=== PATIENT | female | born 1980 | race Caucasian/White ===

== ENCOUNTER 2018-11-03 10:50 | Inpatient (IN) ==
[2018-11-03 12:47] LABS: BASO# 0.02 X1000 (0.0-0.2); BASO% 0.2 % (0.0-0.8); EOS# 0.11 X1000 (0.0-0.7); HEMATOCRIT 37.9 % (37.0-47.0); HEMOGLOBIN 12.4 g/dL (12.0-16.0); LYMPH# 3.31 X1000 (1.2-3.4); LYMPH% 30.6 % (20.5-51.1); MCH 25.7 PG (27-31); MCHC 32.7 g/dL (33-37); MCV 78.5 FL (81-99); MONO# 0.68 X1000 (0.11-0.59); MONO% 6.3 % (1.7-9.3); MPV 10.8 FL (7.4-10.4); NEUT# 6.71 X1000 (1.4-6.5); NEUT% 61.9 % (42.2-75.2); PLT 157 X1000 (130-400); RBC 4.83 XMIL (4.2-5.4); RDW 15.7 % (11.5-14.5); WBC 10.83 X1000 (4.8-10.8)
[2018-11-03 13:06] LABS: AGAP 8; ALBUMIN 3.3 g/dL (3.5-5.0); ALKALINE PHOSPHATASE 85 U/L (32-104); BUN 8 mg/dL (8-22); CALCIUM 8.3 mg/dL (8.8-10.2); CHLORIDE 102 mmol/L (98-107); CK PROFILE 32 U/L (24-173); COSMO 283; CREATININE 0.6 mg/dL (0.5-0.9); ESTIMATED GFR > 60; GLUCOSE 324 mg/dL (70-104); GOT 21 U/L (10-30); GPT 24 U/L (10-36); POTASSIUM 4.2 mmol/L (3.5-5.1); SODIUM 136 mmol/L (136-145); TCO2 26 mmol/L (25-35); TOTAL BILIRUBIN 0.62 mg/dL (0.20-1.00); TOTAL PROTEIN 6.5 g/dL (6.3-8.3)
--- NOTE | 2018-11-03 13:08 | Diag Imaging Result Doc PS360 ---
CHEST-PORTABLE - 11/03/2018 INDICATION: cp COMPARISON: 03/18/2018 FINDINGS: There is a new left-sided pacemaker in good position. Stable CABG changes. Lung volumes are severely low with some central crowding. No infiltrates or definite edema. Heart size is top normal. IMPRESSION: Severely low lung volumes. No acute disease or complication. Electronically signed by Brien Sykes 11/03/2018 1:06 PM
[2018-11-03] MEDS: BRILINTA PO SCH ×2 (14:45→21:06)
--- NOTE | 2018-11-03 14:49 | EKG Report ---
Test Performed on : 11/03/2018 11:19:17 AM Test Reason : ED. No order in [place] Blood Pressure : / mmHG Vent. Rate : 089 BPM Atrial Rate : 089 BPM P-R Int : 164 ms QRS Dur : 102 ms QT Int : 410 ms P-R-T Axes : 033 -44 077 degrees QTc Int : 498 ms Normal sinus rhythm. Possible Left atrial enlargement Left axis deviation Septal infarct , age undetermined Abnormal ECG When compared with ECG of 18-MAR-2018 13:13, No significant change was found Unconfirmed Result
--- NOTE | 2018-11-03 15:45 | HISTORY AND PHYSICAL ---
CHIEF COMPLAINT: Chest pain, shortness of breath, and palpitations of about 7 days duration. HISTORY OF PRESENT ILLNESS: Ms Pinot is a 37 years old lady with past medical history of morbid obesity, coronary artery disease, status post coronary artery bypass graft and multiple stent, multiple DVT/PE, AICD or pacemaker placement, who comes in with chief complaints of chest pain, shortness of breath and palpitation of about 7 days duration. At baseline, patient is alert and oriented. She is able to carry out her routine activities. However, she has been lately using a cane, and her family members help. She suddenly started experiencing chest pain when she was sleeping about 7 days ago. The nature of the chest pain was described to be as substernal, sharp, located over the left chest underneath the breast, sometimes radiating to the right side associated with palpitation, shortness of breath, mild diaphoresis and headache. She did not seek any medical attention. She kept on taking her routine medication. Noticeably, she has ran out of her Eliquis for about 2 weeks since it requires prior authorization and she has not received these medication. Her symptoms of chest pain and shortness of breath would get worse on physical exertion. It intermittently got better without any specific relieving factors. However, today it started getting worse again so she decided to come to the emergency room. In the emergency room, she was noted to have blood pressure of 70/40. However, it appears to be in appropriate reading as reported to me by the patient. She is denying currently any chest pain, shortness of breath, or dizziness. Blood pressure cuff is not hooked up to her arm. She denies any cough. She also denies any recorded fever. She states that her last stent was in June of 2018 and her last blood clot in the lower extremity was in August of 2018. REVIEW OF SYSTEMS: Positive for headache. Positive for dizziness. Negative for blurry vision. Positive for chest pain, which is better now. Positive shortness of breath and palpitation. Negative for nausea, vomiting, or abdominal pain. Positive for leg cramps. Positive for mild bilateral edema. Negative for urinary frequency or urgency. Negative for constipation. PAST MEDICAL HISTORY: Coronary artery disease status post CABG in January of 2017, multiple percutaneous intervention, and about 9 stents last one being in June of 2018. AICD placement in April of 2018. Her clinical educator is Ryder Arias. Multiple deep venous thrombosis and pulmonary embolism on Eliquis. Last blood clot was in August of 2018. She has been off blood thinners for about 2 weeks now. Past history of Factor V Leiden. History of secondary smoke and suspected chronic obstructive pulmonary disease from that. Morbid obesity. Fibromyalgia. Degenerative joint disease. Obstructive sleep apnea. Narcolepsy. Seizure. PAST SURGICAL HISTORY: 1. Coronary artery bypass graft. 2. AICD placement. 3. Tonsillectomy. 4. section. SOCIAL HISTORY: She denies smoking. Occasional alcohol drink. She denies recreational drugs. FAMILY HISTORY: Family history of multiple DVT. Family history of coronary artery disease. Family history of Factor V Leiden. PHYSICAL EXAMINATION: VITAL SIGNS: Currently, vitals suggest temperature of 98 degrees, pulse 85, respiratory rate 16, blood pressure of 115/63 and saturating 99% on room air. GENERAL: Morbidly obese not in any acute distress. Oral cavity is moist. LUNGS: Air entry bilaterally equal. No wheeze or rhonchi. Mild crackles bilateral infrascapular region however, examination is limited because of her large body habitus. HEART: S1, S2 normal. No murmur, rub, or gallop. She has a chest wall scar of previous bypass graft. She has mild tenderness on palpation of her precordium. ABDOMEN: Obese, soft, and nontender. EXTREMITIES: Mild bilateral lower extremity edema. NEUROLOGIC: She is alert and oriented x3 lying in the bed comfortably. LABORATORY: Suggestive of leukocytosis. Normal hemoglobin, hematocrit, and platelet count. Normal electrolytes. Hyperglycemia. Serum test is negative. Her troponin initial was also negative. No new microbiological data. IMAGING: Chest x-ray suggestive of severely low lung volumes without any acute disease or complication. EKG was suggestive of normal sinus rhythm, left atrial enlargement. Q-waves with septal infarct in V1 to V3. ASSESSMENT AND PLAN: 1. Precordial Chest pain with exertional exacerbation, with prior history of significant coronary artery disease status post CABG in January of 2017, and multiple percutaneous intervention with last stent being in June of 2018. Differential includes residual CAD, recurrent PE, anxiety, fibromyalgia. 2. History of congestive heart failure, status post AICD in April of 2018 with mild pedal edema. 3. History of multiple DVT/PE related to morbid obesity as well as Factor V Leiden deficiency and noncompliance with Eliquis due to insurance issues. 4. History of seizure. 5. History of den-[id number] diabetes mellitus with current hyperglycemia. 6. Essential hypertension and hyperlipidemia, fibromyalgia, LORI, NARCOLEPSY. PLAN: The patient's chest pain did have features of worsening on physical exertion. She has significant coronary artery disease history. Considering that, I will resume her home medication of Brilinta and Eliquis and atorvastatin. I will resume her other home medications as they are reconciled. I will trend troponin's. We will follow up with echocardiogram. I will consult Cardiology to see if she would need a stress test vs coronary angiography based on her course. I will start her on therapeutic dose of eliquis considering that she has missed almost 2 weeks of treatment and she has had multiple DVT/PE in the past as per history (last being in 08/2018). I will also continue her on sliding scale insulin. Plan of care discussed with her. All of her questions have been answered. cc: Bairon Palomares MD MTDD
--- NOTE | 2018-11-03 16:34 | ECHO REPORT ---
ORDER DATE: 11/03/2018 INTERPRETING PHYSICIAN: Dr. Steven Bazzi ECHOCARDIOGRAPHIC MEASUREMENTS: 1. Interventricular septum 0.9. 2. Left ventricular posterior wall 0.9. 3. Diastolic diameter 6.1. 4. Left atrium 4.4. 5. Aorta 2.9. SUMMARY OF THE 2-DIMENSIONAL IMAGIN. Mitral valve was normal. 2. Pulmonic valve was normal. 3. Aortic valve leaflets trileaflet, not well visualized. Pacemaker leads were noted in the right chamber. 4. Mitral valve was normal. 5. Tricuspid valve was normal. 6. Technically suboptimal study. Very poor acoustic window. 7. Optison was used to assess left ventricular systolic function. Left ventricle was mildly dilated with reduced systolic function. Estimated ejection fraction of 20% to 25%. There is global hypokinesis. 8. There is mild mitral regurgitation. 9. Mild tricuspid regurgitation. Peak velocity across the tricuspid valve was 3 m/sec. Pulmonary artery systolic pressure of 50 mmHg. 10. Peak velocity across the aortic valve less than 2 m/sec. There is no aortic stenosis or regurgitation. 11. There is no pericardial effusion. cc: MD Bairon Meléndez MD
[2018-11-03] MEDS: HUMALOG SUBQ SCH ×2 (16:58→21:56)
[2018-11-03] MEDS: ELIQUIS PO SCH ×2 (16:58→21:06)
[2018-11-03] MEDS: KEPPRA PO SCH ×2 (16:59→21:06)
[2018-11-03 17:29] LABS: INR 0.96; PROTIME 13.6 Seconds (11.0-16.0)
[2018-11-03] MEDS ORDERED: LIPITOR PO SCH (21:00)
--- NOTE | 2018-11-03 21:14 | Diag Imaging Result Doc PS360 ---
EXAM: CT ANGIOGRM PULMONARY ARTERIES HISTORY: dyspnea, hx PE/DVT TECHNIQUE: CT chest with intravenous contrast. Pulmonary two protocol with MIP images. COMPARISON: 01/11/2017 FINDINGS: Normal opacification of the pulmonary arteries and their major branches. The heart is mildly enlarged. No pleural effusions. No thoracic aortic aneurysm or dissection. Sternal wires are present. There are calcified mediastinal nodes with scattered granuloma. No consolidation. No bronchiectasis. Mild pulmonary edema. IMPRESSION: Cardiomegaly with mild pulmonary edema. This exam was performed using automated exposure control, adjustment of mA or kV according to patient size, and/or use of iterative reconstruction technique. Electronically signed by Padilla Brown 11/03/2018 9:11 PM
--- NOTE | 2018-11-03 23:50 | CARDIOLOGY CONSULTATION ---
DATE: 11/03/2018 CONSULTATION REQUESTED BY: Hospitalist service. REASON FOR CONSULTATION: Chest discomfort, shortness of breath, swelling. PRIMARY PROVIDER: ASHIA Rojo. ELECTRIC TRUCK CRANE OPERATOR: Dr. Ryder Ford in [place]. HISTORY: Ms Pinto is a 37-year-old female who presented to the emergency department today at some point in the afternoon. I do not have any records from the emergency department, other than the fact that she was there about 12 noon today. She presented with increasing dyspnea that had been going on for several days. Apparently, she had discontinued her anticoagulation due to inability to obtain a refill and she has been off of anticoagulants for 10 days. She has had some puffiness of the ankles, increasing dyspnea. She says that she had a right heart catheterization in [facility] a couple weeks ago through the right internal jugular approach. Medications were not changed as a result of that test. The patient denies syncope. However, she feels somewhat dizzy and lightheaded quite frequently. PAST MEDICAL HISTORY: Positive for very severe, very malignant progression of coronary heart disease with several acute coronary events. She underwent a coronary bypass procedure in January 2017 that included a mammary graft to LAD and a vein graft to marginal branch of circumflex. Since then, she has had a number of percutaneous procedures. She has had even an MRI of the heart that showed LVEF of 30% with transmural nonviable infarct/microvascular obstruction involving the mid to apical LAD distributions with associated microvascular obstruction. The patient's last heart catheterization performed in June 2018 showed 70% ostial LAD and mid complete occlusion. Circumflex ostial 20% with a patent OM1 stent. Right coronary artery 50% stenosis with transeptal collaterals to LAD. The patient has had, also, hypertension. She has congestive heart failure, chronic, as a result of multiple coronary events. She has sleep apnea syndrome, she is morbidly obese. Body mass index is 57.6. She has anxiety, previous pulmonary embolism with factor V deficiency or Leiden deficiency, that is hereditary. She has diabetes type 2. SURGICAL HISTORY: In addition to coronary artery bypass, includes tonsillectomy, . She has 1 living child. SOCIAL HISTORY: She is single. She is not a smoker. FAMILY HISTORY: Mother had a heart attack, in her 50s. Father had sudden from myocardial infarction. The patient has received an internal defibrillator by, [facility], [facility], Dr. Reyes, a [employer] MDT Visia AF MRI DR Da Silva [id number] implanted on 04/29/2018, that was for prophylaxis of sudden . HOME MEDICATIONS: Include at this time apixaban 5 mg twice a day, Atorvastatin 80 once a day, carvedilol 3.125 twice a day, glipizide 5 mg twice a day, hydrocodone every 12 hours, Keppra 1000 twice a day, omeprazole 40 in the morning, Ranolazine 1000 mg twice a day, spironolactone 12.5 daily, Brilinta 90 mg twice a day. ALLERGIES: Penicillin. REVIEW OF SYSTEMS: Chronically short of breath, chronically lightheaded, chronic palpitations, they have been worsening lately, being 1 of the reasons for her presentation to the ER. PHYSICAL EXAMINATION: Vital signs: Blood pressure 122/71, pulse 85, temperature 98 degrees, respirations 18. general: She is awake, alert, oriented, in no distress. HEENT: Unremarkable. Chest: Clear to auscultation and percussion. Cardiovascular: Heart sounds regular and rhythmic. No gallop or murmur. Abdomen: Obese. Extremities: Showed decreased pulses. No edema. Neurologic: Nonfocal. Moves 4 extremities. LAB WORK: Sodium 136, potassium 4.2, BUN 8, creatinine 0.6. Hemoglobin 12.4, white cell count 10,830. Her 12-lead EKG today shows sinus rhythm, possible left atrial enlargement, left axis deviation, anterior scar. IMAGING: Her chest x-ray today showed severely low lung volumes. No acute disease or complication. IMPRESSION: 1. Patient who presents with increasing dyspnea following an interruption on her anticoagulation for about 10 days. She has had previous deep venous thrombosis and pulmonary embolism with factor V Leiden deficiency. 2. Chronic congestive heart failure, systolic. 3. Previous myocardial infarction in the LAD and circumflex territory. 4. Status post coronary bypass surgery x2 with recurrent coronary syndrome and need for recurrent stents. 5. Morbid obesity, body mass index 57. 6. Sleep apnea syndrome. 7. Status post automatic implantable cardioverter defibrillator implantation for sudden prophylaxis. RECOMMENDATION: I am advising to obtain a CT scan of the lung with contrast to exclude pulmonary embolism. We will arrange for a follow-up myocardial perfusion stress test in the morning to further evaluate her coronary heart disease. Otherwise, we will continue present medical therapy as ordered by Dr. Ryder Ford, who is in charge of her entire cardiovascular issues and, depending on the results, we will give further recommendations. cc: MD Bairon Méndez MD MTDEber
[2018-11-04] MEDS: HUMALOG SUBQ SCH ×4 (06:54→23:04)
[2018-11-04 07:05] LABS: BASO# 0.03 X1000 (0.0-0.2); BASO% 0.3 % (0.0-0.8); EOS# 0.17 X1000 (0.0-0.7); EOS% 1.8 % (0.0-10.0); HEMATOCRIT 38.2 % (37.0-47.0); HEMOGLOBIN 12.3 g/dL (12.0-16.0); LYMPH# 2.75 X1000 (1.2-3.4); LYMPH% 29.2 % (20.5-51.1); MCH 25.2 PG (27-31); MCHC 32.2 g/dL (33-37); MCV 78.1 FL (81-99); MONO# 0.63 X1000 (0.11-0.59); MONO% 6.7 % (1.7-9.3); MPV 10.7 FL (7.4-10.4); NEUT# 5.85 X1000 (1.4-6.5); PLT 159 X1000 (130-400); RBC 4.89 XMIL (4.2-5.4); RDW 15.7 % (11.5-14.5); WBC 9.43 X1000 (4.8-10.8)
[2018-11-04 07:15] LABS: HEMOGLOBIN A1C 8.4 % (4.8-6.0)
[2018-11-04 07:23] LABS: AGAP 7; CHLORIDE 100 mmol/L (98-107); POTASSIUM 4.1 mmol/L (3.5-5.1); SODIUM 134 mmol/L (136-145); TCO2 27 mmol/L (25-35)
[2018-11-04 07:24] LABS: BUN 10 mg/dL (8-22); CALCIUM 8.3 mg/dL (8.8-10.2); COSMO 277; CREATININE 0.7 mg/dL (0.5-0.9); ESTIMATED GFR > 60; GLUCOSE 269 mg/dL (70-104); MAGNESIUM 1.8 mg/dL (1.5-2.7)
--- NOTE | 2018-11-04 07:59 | EKG Report ---
Test Performed on : 11/04/2018 07:38:45 AM Test Reason : chest pain Blood Pressure : / mmHG Vent. Rate : 081 BPM Atrial Rate : 081 BPM P-R Int : 168 ms QRS Dur : 106 ms QT Int : 410 ms P-R-T Axes : 043 -41 069 degrees QTc Int : 476 ms Normal sinus rhythm. Left axis deviation Septal infarct (cited on or before 03-NOV-2018) Lateral infarct , age undetermined Abnormal ECG When compared with ECG of 03-NOV-2018 11:19, (Unconfirmed) Lateral infarct is now present Confirmed by Barney CONTRERAS, Matti Ballesteros ([id number]) on 11/05/2018 11:38:28 AM
--- NOTE | 2018-11-04 11:17 | PROVIDER DOCUMENTATION ---
This chart was entered by Sakina Contreras Scribe, acting as scribe for Kevan Dye MD. HPI-Chest Pain - General Chief Complaint: Chest Pain Stated Complaint: CHEST PAIN Time Seen by Provider: 11/03/18 11:27 Source: patient, EMS Allergies/Adverse Reactions: Patient Allergies Allergy/AdvReac Type Severity Reaction Status Date / Time Penicillins Allergy Severe RASH Verified 11/03/18 12:54 Home Medications: Home Medication List Medication Instructions Recorded Confirmed Last Taken Type Levetiracetam [Keppra] 1,000 mg PO BID 08/30/17 11/03/18 08/30/17 History ATORVAstatin [Lipitor] 80 mg PO QHS 11/03/18 11/03/18 Unknown History Apixaban [Eliquis] 5 mg PO BID 11/03/18 11/03/18 Unknown History Carvedilol 3.125 mg PO BID 11/03/18 11/03/18 Unknown History Cyanocobalamin (Vitamin B-12) 1,000 mcg IJ DIRECTED 11/03/18 11/03/18 Unknown History [Cyanocobalamin Injection] Furosemide 40 mg PO DAILY 11/03/18 11/03/18 Unknown History Glipizide 5 mg PO BID 11/03/18 11/03/18 Unknown History Hydrocodone/Acetaminophen 1 ea PO Q12H 11/03/18 11/03/18 Unknown History [Hydrocodon-Acetaminophn 10-325] Ipratropium/Albuterol Sulfate 1 inh INHALATION 4XDAY PRN 11/03/18 11/03/18 Unknown History [Iprat-Albut 0.5-3(2.5) mg/3 ml] Omeprazole 40 mg PO QAM 11/03/18 11/03/18 Unknown History Ondansetron HCl 4 mg PO Q6H PRN 11/03/18 11/03/18 Unknown History Ranolazine [Ranexa] 1,000 mg PO BID 11/03/18 11/03/18 Unknown History Spironolactone 12.5 mg PO DAILY 11/03/18 11/03/18 Unknown History Ticagrelor [Brilinta] 90 mg PO BID 11/03/18 11/03/18 Unknown History - History of Present Illness-CP Nature of Presenting Problem: 37 yowf presents to the ed with c/o chest pain and sob intermittently for 1 week. pt has heart hx with CHF ND CABG. pt is morbidly obese female and has had palpitations with chest pain. pt sts this pain is similar to past ND. pt took a 325mg ASA at home this am Location: reports: other (left anterior) Chest Pain Radiation: reports: no radiation Quality of Pain: reports: sharp Severity in ED: moderate Onset/Duration: 1 week ago Timing: intermittent Context/Activities at Onset: reports: light activity Modifying Factors: improves with: nothing. worse with: exercise Associated Symptoms: reports: shortness of breath. denies: back pain, dizziness, fever/chills, nausea, vomiting Aspirin Treatment Today: 325 mg x 1, provided at home Prior Chest Pain/Cardiac Workup: reports: heart attack Similar Symptoms Previously?: Yes Recently Seen Here or By Another Healthcare Provider: No Review of Systems - Adult - REVIEW OF SYSTEMS - ADULT Constitutional: denies: chills, fever Eyes: reports: no symptoms reported Ears, Nose, Mouth & Throat: reports: no symptoms reported Cardiovascular: reports: no symptoms reported, see HPI, chest pain, edema, orthopnea, palpitations. denies: syncope Respiratory: reports: see HPI, chronic cough, dyspnea on exertion, shortness of breath. denies: wheezing Gastrointestinal: denies: abdominal pain, diarrhea, nausea, vomiting Genitourinary: reports: see HPI, frequent UTI's Musculoskeletal: reports: no symptoms reported Integumentary: reports: no symptoms reported Neurological: denies: dizziness/vertigo, headache/migraines Psychiatric: reports: no symptoms reported Endocrine: reports: no symptoms reported Hematologic/Lymphatic: reports: no symptoms reported Allergic/Immunologic: reports: no symptoms reported All Other Systems: Reviewed and Negative Past History - Adult - PAST MEDICAL HISTORY-ADULT Review of Records: reports: Old Records Reviewed Major Childhood Illnesses: reports: denies history Cardiovascular: reports: blood clots, HTN, hyperlipidemia Respiratory: reports: asthma, COPD, sleep apnea Gastrointestinal: reports: GERD Obstetrical/Gynecological: reports: denies history Genitourinary: reports: chronic UTI's Musculoskeletal: reports: fibromyalgia, intervertebral disc disease Neurological: reports: Seizures/Epilepsy Psychiatric: reports: anxiety Endocrine/Immune: reports: Diabetes (borderline) Other Conditions: reports: denies history - PRIOR SURGERIES/PROCEDURES Surgical/Procedure History: reports: CABG, , tonsillectomy - PRIOR HOSPITALIZATIONS Prior Hospitalizations: reports: for other non-related - IMMUNIZATION STATUS Childhood Immunizations: See Nurse Assessment Flu Vaccine: See Nurse Assessment - FAMILY HISTORY Family History: PE/DVT - SOCIAL HISTORY Smoking: non-smoker Substance Use: none/never Alcohol Use Frequency: never Living Situation: family Physical Exam-General - PHYSICAL EXAM-ADULT Initial Vital Signs Reviewed: Yes - CONSTITUTIONAL General Appearance: alert, mild distress, obese - EYES Eyes: PERRL/EOMI, pink conjunctivae - HEAD, EARS, NOSE, MOUTH & THROAT HENMT: moist mucous membranes, normal ENT inspection - NECK Neck: non-tender, full range of motion, normal inspection - RESPIRATORY Respiratory: chest non-tender, lungs clear, normal breath sounds, no pleuratic chest pain, no respiratory distress, no accessory muscle use - CARDIOVASCULAR Cardiovascular: normal peripheral pulses, regular rate, rhythm - GASTROINTESTINAL (ABDOMEN) Abdominal Exam: normal bowel sounds, non tender, soft - LYMPHATIC Lymphatic: no adenopathy - MUSCULOSKELETAL Back Exam: normal inspection, no CVA tenderness, no vertebral tenderness Extremity: non-tender, no calf tenderness, normal capillary refill, swelling (BLE edema) - SKIN Integumentary: normal color, normal turgor, warm/dry - NEUROLOGIC Neurologic: grossly normal - PSYCHIATRIC Psych/Mental Status: normal mood/affect, normal thought content, normal thought process, oriented x 3 - HEART Score HEART Score: History: Highly Suspicious HEART Score: ECG: Non-Specific Repolarization Disturbance/LBBB/PM HEART Score: Age: < or = 45 Years HEART Score: Risk Factors for Atherosclerotic Disease: 1 or 2 Risk Factors HEART Score: Troponin: < or = Normal Limit Total HEART Score:: 4 Progress - PLAN OF CARE/RESULTS Progress/Plan/Lab Results: Laboratory Results - last 24 hr 11/03/18 11/03/18 11/03/18 12:14 12:14 12:14 WBC 10.83 H RBC 4.83 Hgb 12.4 Hct 37.9 MCV 78.5 L MCH 25.7 L MCHC 32.7 L RDW Std Deviation 15.7 H Plt Count 157 MPV 10.8 H Immature Gran % (Auto) 0.0 Neut % (Auto) 61.9 Lymph % (Auto) 30.6 Tucker % (Auto) 6.3 Eos % (Auto) 1.0 Baso % (Auto) 0.2 Immature Gran # (Auto) 0.00 Neut # (Auto) 6.71 H Lymph # (Auto) 3.31 Tucker # (Auto) 0.68 H Eos # (Auto) 0.11 Baso # (Auto) 0.02 Sodium 136 Potassium 4.2 Chloride 102 Carbon Dioxide 26 Anion Gap 8 BUN 8 Creatinine 0.6 Estimated GFR/1.73 m2 > 60 BUN/Creatinine Ratio 13 Glucose 324 H Calculated Osmolality 283 Calcium 8.3 L Total Bilirubin 0.62 AST 21 ALT 24 Alkaline Phosphatase 85 Creatine Kinase 32 Troponin T Total Protein 6.5 Albumin 3.3 L Globulin 3.2 Albumin/Globulin Ratio 1.0 Serum , Qual NEGATIVE 11/03/18 12:14 WBC RBC Hgb Hct MCV MCH MCHC RDW Std Deviation Plt Count MPV Immature Gran % (Auto) Neut % (Auto) Lymph % (Auto) Tucker % (Auto) Eos % (Auto) Baso % (Auto) Immature Gran # (Auto) Neut # (Auto) Lymph # (Auto) Tucker # (Auto) Eos # (Auto) Baso # (Auto) Sodium Potassium Chloride Carbon Dioxide Anion Gap BUN Creatinine Estimated GFR/1.73 m2 BUN/Creatinine Ratio Glucose Calculated Osmolality Calcium Total Bilirubin AST ALT Alkaline Phosphatase Creatine Kinase Troponin T < 0.010 Total Protein Albumin Globulin Albumin/Globulin Ratio Serum , Qual Orders Category Date Time Status Admit - [facility] Routine AdmDCTranf 11/03/18 14:09 Active Activity - Up with Assistance ORDERED Care 11/03/18 14:09 Active DVT/PE Risk Assess/Protocol [QM] ORDERED Care 11/03/18 14:09 Active Intake and Output-Strict ORDERED [facility] 11/03/18 14:09 Active Vital Signs Order Q 4-HR ASSESS Care 11/03/18 14:09 Active Z-Document. for Tele Applied ORDERED Care 11/03/18 14:11 Completed Heart Healthy Diet Diet 11/03/18 14:10 Active CHEST-PORTABLE [RAD] Stat Exams 11/03/18 11:33 Completed CBC WITH ELECTRONIC DIFF [HEME] Stat Lab 11/03/18 12:14 Completed CK PROFILE [SP CHEM] Stat Lab 11/03/18 12:14 Completed COMPREHENSIVE METABOLIC PANEL [CHEM] Stat Lab 11/03/18 12:14 Completed TEST-SERUM [PREG] Stat Lab 11/03/18 12:14 Completed TROPONIN T Stat Lab 11/03/18 12:14 Completed Telemetry [OM.EQ] Routine Oth 11/03/18 14:09 Active EKG [EKG] Routine Ther 11/04/18 08:00 Draft Transfer/Admit Order [TRANSFER] Routine Transfer 11/03/18 14:12 Completed Result Diagrams: 11/04/18 06:45 11/04/18 06:45 - REASSESSMENT Reassessment #2 Time Reassessed: 13:16 Status: improving - EKG 1 Time of EKG reading by physician:: 11:20 EKG Read and Signed by:: Kevan Dye EKG Interpretation (*Must complete 3 of following elements*): Abnormal Rate: 89 Rhythm: nsr [place]: left (deviation) QRS: other (possible left atrial enlargement) [place] Interval: normal ST Wave: normal Comments: septal infarct, age undetermined - XRAY 1 XRAY: Bilateral XRAY Study: Chest Impression: See EMR Report (CHEST-PORTABLE - 11/03/2018 INDICATION: cp COMPARISON: 03/18/2018 FINDINGS: There is a new left-sided pacemaker in good position. Stable CABG changes. Lung volumes are severely low with some central crowding. No infiltrates or definite edema. Heart size is top normal. IMPRESSION: Severely low lung volumes. No acute disease or complication. Elec tronically signed by Brien Sykes 11/03/2018 1:06 PM 11/03/18 1306 Interpreting Physician: Brien Sykes MD Dictated Date/Time: 11/03/18 1306 cc: Kevan Dye MD; Isaiah Ford MD) - CONSULTS/PCP/HOSPITALIST Notification #1 *Consult/PCP/Hospitalist*: hospitalist Time Discussed: 13:35 Consult Disposition: Admit Departure - Departure Date of Disposition Decision: 11/03/18 Time of Disposition Decision: 14:00 DIAGNOSIS: Chest pain Qualifiers: Chest pain type: unspecified Qualified Code(s): R07.9 - Chest pain, unspecified Disposition: ADMITTED INPATIENT 09 Certified Medical Emergency: Emergent Condition: Serious - Critical Care Note This patient required my direct & personal management of CC.: No Attestation - Physician/ CANDIE Attestation Patient care was provided by Advanced Practice Provider:: No The physician spent face to face time with patient:: Yes Advanced Practice Provider documentation review:: Supervising physician onsite and consulted in the evaluation and care of this patient. The physician did have a face to face encounter with the patient. This chart was documented by the indicated scribe, (Sakina Contreras Scribe) and accurately reflects the services I performed and decisions made by me, Kevan Dye MD, as attested by the provider's signature.
[2018-11-04] MEDS: BRILINTA PO SCH (11:31)
[2018-11-04] MEDS: KEPPRA PO SCH ×2 (11:32→23:00)
[2018-11-04] MEDS: ELIQUIS PO SCH ×2 (11:33→23:00)
[2018-11-04] MEDS ORDERED: DUONEB (A & A) INH PRN (14:59)
--- NOTE | 2018-11-04 15:13 | Extremity Venous Study ---
PROCEDURE NAME: Venous U/S Bilateral Legs - 11/03/2018 INFORMATION SECURITY DIRECTOR: [place]. REQUESTING PHYSICIAN: Rebecca. INDICATION: History of DVT. EXAMINATION FOR COMPARISON: 01/11/2017. Partition Setter noted patient is 315 pounds. FINDINGS: The deep and superficial veins were visualized in the bilateral lower extremities. Some views are somewhat suboptimal but we did visualize each adequately. They appeared to be compressible with no obvious residual thrombus noted. SUMMARY: No evidence of persistent deep or superficial venous thrombosis seen in bilateral lower extremities. cc: MD Minerva Hoffmann PA Siddharth Patel, MD
[2018-11-04] MEDS: NORCO-10 PO SCH (15:39)
[2018-11-04] MEDS: ZOFRAN PO PRN (15:39)
--- NOTE | 2018-11-04 17:45 | PROGRESS NOTE ---
DATE: 11/04/2018 INTERVAL HISTORY: Ms. Pinto was admitted and Cardiology was consulted considering her significant past medical history of coronary artery disease. A nuclear medicine stress test was scheduled. CT scan did not detect any pulmonary embolism. Bilateral lower extremity venous ultrasound is pending. SUBJECTIVE: Patient continues to complain of some persistent chest pain. She does not appear in any acute distress, and she is talking with the family without any trouble. She denies any shortness of breath at the moment. I discussed with her about her Eliquis issues, and that I would try and get in touch with her pharmacy. VITAL SIGNS: Temperature 97.9 degrees, pulse 88, respiratory rate 18, blood pressure 110/62, saturating 100% on 2 L nasal cannula. PHYSICAL EXAMINATION: General: Morbidly obese, not in any acute distress. Mouth: Oral cavity is moist. Examination is limited because of large body habitus. Lungs: Air entry appears bilaterally equal on suprascapular region. No wheeze or rhonchi. I could not appreciate air movement on bilateral interscapular or infrascapular region because of her obesity. Cardiovascular: S1, S2 normal. No murmur, rub, or gallop. She has a chest wall scar of previous bypass graft. She has mild tenderness on palpation on her precordium. Abdomen: Obese, soft, nontender. Extremities: Mild bilateral lower extremity edema. Neurologic: She is alert and oriented x3, sitting in the bed comfortably. LABS: Suggestive of no leukocytosis. Normal hemoglobin, hematocrit, and platelet count. Normal kidney function. Her blood sugars are 221. Her magnesium is 1.8. MICROBIOLOGY: No new microbiological data. IMAGING: Chest x-ray which was performed yesterday had suggested morbid obesity, left-sided pacemaker, sternotomy wire. Pulmonary arteriogram performed had cardiomegaly with mild pulmonary edema. Extremity venous study reading is pending. ASSESSMENT: 1. Precordial chest pain with exertional exacerbation with prior history of significant coronary artery disease, status post coronary artery bypass graft in January 2017, multiple percutaneous interventions with last stent in June [address] scan did not detect any pulmonary embolism. Her anxiety, fibromyalgia could be contributing to her chest pain. However, coronary artery disease needs to be ruled out. Follow up with final stress test results and Cardiology recommendation. According to the nursing report, patient was not able to complete the stress test. I will appreciate Cardiology recommendation. I will continue her home medications, including atorvastatin, carvedilol, Lasix, ranolazine, spironolactone, and Brillinta. She is taking Eliquis at home and is not listed to be taking aspirin or Plavix. 2. History of congestive heart failure, status post automatic implantable cardioverter defibrillator in April 2018 with mild pedal edema. Continue current dose of spironolactone and Lasix. Follow up with echocardiogram, the results of which is pending. 3. History of Factor V Leiden mutation, the details of which are unclear with history of multiple deep vein thrombosis or pulmonary embolism related to it and noncompliance with Eliquis due to insurance issues recently. The patient has not been able to take Eliquis for the last 2 weeks as she had prior authorization pending. Considering she has had multiple deep vein thrombosis, pulmonary embolus, and Factor V Leiden, I am going to re-treat it with therapeutic dose, which I have ordered. I called the patient's pharmacy so that she can get these medications and have sent a prescription over to them. They are going to fax me a Medicaid form that I am supposed to fill out and send to Medicaid so that she can get these medications. Meanwhile, I will also get ultrasound of lower extremity results back. I would give her outpatient Hematology referral, which I have already requested to the nurse to set up. 4. History of seizure. Continue home Keppra. 5. History of [id number]-ihirwdtuf diabetes mellitus with current hyperglycemia. Continue sliding scale insulin. 6. Other issues including fibromyalgia, obstructive sleep apnea, narcolepsy, and morbid obesity are stable. PLAN: At this point I am awaiting further Cardiology recommendation regarding her chest pain. Based on that, further disposition will be decided. Plan of care discussed with the patient and her brother at bedside. All of their questions have been satisfactorily answered. cc: MD MARGE Abrams
[2018-11-04] MEDS ORDERED: LIPITOR PO SCH (21:00)
[2018-11-04] MEDS: COREG PO SCH (22:59)
[2018-11-04] MEDS: RANEXA PO SCH (22:59)
[2018-11-05] MEDS: NORCO-10 PO SCH ×2 (04:00→15:24)
[2018-11-05] MEDS: BRILINTA PO SCH ×2 (06:59→09:05)
[2018-11-05] MEDS ORDERED: PRILOSEC PO SCH (07:00)
[2018-11-05] MEDS: HUMALOG SUBQ SCH ×2 (07:00→12:52)
--- NOTE | 2018-11-05 07:10 | EKG Report ---
Test Performed on : 11/05/2018 06:57:43 AM Test Reason : dyspnea Blood Pressure : / mmHG Vent. Rate : 077 BPM Atrial Rate : 077 BPM P-R Int : 190 ms QRS Dur : 100 ms QT Int : 416 ms P-R-T Axes : 033 -84 067 degrees QTc Int : 470 ms Normal sinus rhythm. Left anterior fascicular block Septal infarct (cited on or before 03-NOV-2018) Lateral infarct (cited on or before 03-NOV-2018) Abnormal ECG When compared with ECG of 04-NOV-2018 07:38, (Unconfirmed) No significant change was found Confirmed by Barney CONTRERAS, Matti Ballesteros ([id number]) on 11/05/2018 11:39:46 AM
[2018-11-05] MEDS: KEPPRA PO SCH (08:51)
[2018-11-05] MEDS: COREG PO SCH ×2 (08:51→09:05)
[2018-11-05] MEDS: RANEXA PO SCH (08:52)
[2018-11-05] MEDS: ELIQUIS PO SCH (08:53)
[2018-11-05] MEDS ORDERED: LASIX PO SCH (09:00)
[2018-11-05] MEDS ORDERED: ALDACTONE PO SCH (09:00)
[2018-11-05] MEDS: ZOFRAN PO PRN (09:12)
--- NOTE | 2018-11-05 10:10 | CARDIOLOGY PROGRESS NOTE ---
DATE: 11/05/2018 CHIEF COMPLAINT: Shortness of breath, weakness. SUBJECTIVE: Mrs. Pinto is feeling somewhat better. Yesterday, we attempted to do a Lexiscan myocardial perfusion stress test, however, she was not able to lay flat on her back. We have reviewed an echocardiogram that was done on 11/03 and that study showed ejection fraction of 20% to 25%, global hypokinesis, pulmonary pressure 50 mmHg. A ProBNP level on admission was 517 pg/mL, which is only about 3 times the upper range, which is 178 pg/mL. The patient's EKG from yesterday 11/04 shows sinus rhythm with left axis, no ST segment shifts. Her troponin levels were checked a total 3 times between 12 noon on the and 6 p.m. on the same day. No changes noted there. She is not having any chest pains at this time. PHYSICAL EXAMINATION: Vital signs: Blood pressure is 107/51, temperature 97.2, pulse 85, respirations 16. General: She is awake, alert, obese, lying in bed. Body mass index is 57.6, weighs 315 pounds. HEENT: Unremarkable. Chest: Diminished breath sounds at bases. Heart: Sounds are regular and rhythmic. No gallop or murmur. Abdomen: Her abdomen obese. Extremities: Showed no significant edema. Her chest x-ray from admission showed severely low lung volumes. Her blood work yesterday showed BUN 10, creatinine 0.7, potassium 4.1. Sodium was slightly low. Her hemoglobin A1c is 8.4%. IMPRESSION: 1. A patient who presented with increasing dyspnea, possible anginal equivalent. 2. Severe multivessel coronary artery disease with coronary intervention to the mammary artery graft and the left anterior descending. She has had also lesions in the circumflex and moderate right coronary artery stenosis. 3. History of hypertension. 4. Chronic systolic heart failure with low ejection fraction in the 25% range. 5. History of Factor V Leiden deficiency with pulmonary embolism and deep venous thrombosis. 6. Morbid obesity. 7. Status post automatic implantable cardioverter-defibrillator implantation. RECOMMENDATIONS: At this point in time from my viewpoint, I will suggest to her to continue present medical therapy. I had a lengthy discussion with her. I explained to her that she cannot interrupt her anticoagulation nor her antiplatelet therapy. She needs to stay on everything as stated during this admission. Her prognosis unfortunately is not good. She has a malignant course of coronary heart disease at the age of 37 with very low ejection fraction, myocardial infarction, and she is really not a candidate for heart transplant at this point in time and probably is a poor candidate for assist device. I have instructed her to follow up with her primary employment manager in [place]. Thank you for the opportunity to participate in her evaluation. cc: MD Ge Méndez MD
[2018-11-05 15:23] VITALS: BP 91/70
--- NOTE | 2018-11-05 19:51 | DISCHARGE SUMMARY ---
ADMISSION DATE: 11/03/2018 DISCHARGE DATE: 11/05/2018 ADMISSION DIAGNOSES: 1. Precordial chest pain with exertional exacerbation and prior history of coronary disease with coronary artery bypass graft and stents. The differential includes coronary artery disease, recurrent pulmonary embolism, anxiety and fibromyalgia. 2. History of congestive heart failure, status post automatic implantable cardioverter- defibrillator, with mild pedal edema. 3. Multiple deep venous thromboses and pulmonary emboli related to morbid obesity as well as factor V Leiden deficiency and noncompliance with Eliquis due to insurance issues. 4. History of seizure. 5. History of non insulin-dependent diabetes mellitus type 2 with current hyperglycemia. 6. Essential hypertension with hyperlipidemia. 7. Fibromyalgia. 8. Obstructive sleep apnea. 9. Narcolepsy. DISCHARGE DIAGNOSES: 1. Precordial chest pain with exertional exacerbation and prior history of coronary artery disease, status post coronary artery bypass grafting in January 2017 with multiple percutaneous interventions, with the last stent being in June 2018. Negative for pulmonary embolism. Possible fibromyalgia and anxiety that is related to the chest pain. Apparently the patient was unable to complete a stress test. She was continued on her home atorvastatin, Coreg, Lasix, ranolazine, spironolactone, Brilinta, Eliquis and aspirin. 2. History of congestive heart failure with defibrillator and edema, continued on spironolactone and Lasix. Echocardiogram results were pending. 3. History of factor V Leiden mutation with multiple deep venous thromboses and pulmonary emboli. She was ruled out for pulmonary embolism, and she has had noncompliance with her Eliquis. 4. History of seizures. 5. Uncontrolled non insulin-dependent diabetes mellitus type 2 with hyperglycemia. She was continued on a sliding scale while she was here. 6. Other issues included fibromyalgia, obstructive sleep apnea, narcolepsy, and morbid obesity, which were all stable. CONSULTATIONS: Spike Meza MD. When he saw her, he wanted a pulmonary embolism ruled out with CT scan. Wanted to do a myocardial perfusion stress test. Continued with medical therapy. He described to her that she could not interrupt her anticoagulation nor her antiplatelet therapy, and she was just going to be treated with medicine. [place] like her prognosis was not good due to the malignant course of coronary disease at her age with a low ejection fraction. Apparently she is not a candidate for heart transplant and a poor candidate for ventricular- assist device. He instructed her to follow up with her primary tobacco checkout clerk in [place]. SURGERIES/PROCEDURES: None. HOSPITAL COURSE: Ms. Nini Yoo is a 37-year-old female with a medical history of morbid obesity, coronary artery disease, coronary artery bypass grafting and multiple stents including multiple PEs and DVTs and an AICD placed, who came in with complaints of chest pain, shortness of breath and palpitations for 7 days. She had been able to carry out routine activities but was having to use a cane and her family members' help most recently. Seven days prior to admission she started having chest pain when she was sleeping. It was substernal, located over the left chest, radiating into the right chest, and she had palpitations, shortness of breath, mild diaphoresis and headache. She did not seek medical attention. She kept on taking her routine medications, but had been out of her Eliquis for 2 weeks since it required prior authorization, and she had not received the medication. Her symptoms of chest pain and shortness of breath were getting worse with physical exertion. It was intermittent, however, it was worse on the day of admission. She presented to the emergency department. Apparently her blood pressure was low on presentation, 70/40, but she had been chest pain free during the examination. Cardiology saw her and continued her on her medications and ordered to rule out PE, so a pulmonary arteriogram ruled out PE, but it did show cardiomegaly with mild pulmonary edema. She went for a cardiac stress test but was apparently unable to perform the cardiac stress test. She is currently chest pain free, and so she will go home. Vitals were stable during her stay. She was instructed by Cardiology to not stop her antiplatelet or blood-thinning regimen. DISCHARGE VITAL SIGNS: Temperature 98.0, heart rate 86, respiratory rate 20, blood pressure 107/35, O2 saturation 100% on 2 L nasal cannula. DISCHARGE LABORATORY DATA: White blood cells yesterday were 9000, hemoglobin 12, hematocrit 38, platelet count 159. Yesterday's BMP: Sodium 134, potassium 4.1, BUN 10, creatinine 0.7, glucose 254. Hemoglobin A1c was 8.4. Calcium 8.3, magnesium 1.8. ProBNP on presentation was 517. Cardiac enzymes remained negative. test negative. PERTINENT IMAGING: On the , chest x-ray showed severely low lung volumes, no acute disease. Pulmonary arteriogram: No PE, but showed cardiomegaly with mild pulmonary edema. Lower extremity ultrasound due to elevated D-dimer: There was no evidence of persistent DVT in the bilateral lower extremities, although she has a history of them. Echocardiogram on the : Ejection fraction 20% to 25%. There is pulmonary hypertension with a systolic pressure of 50 mmHg. Mild MR. EKG on admission: Normal sinus rhythm. Rate 89. QTc 498. EKG on day of discharge: Normal sinus rhythm, rate 77, QTc 470. DISCHARGE MEDICATIONS: 1. Lipitor 80 mg p.o. nightly. 2. Brilinta 90 mg p.o. twice daily 3. Coreg 3.235 mg p.o. twice daily. 4. Vitamin B12 1000 mcg once a month. 5. Lasix 40 mg p.o. daily. 6. Glipizide 5 mg twice daily. 7. [place] 10, 1 tab p.o. every 12 hours. 8. Albuterol-Atrovent 4 times a day p.r.n. 9. Keppra 1000 mg p.o. twice daily 10.Omeprazole 40 mg p.o. daily. 11.Zofran 4 mg p.o. every 6 hours p.r.n. 12.Ranexa 1000 mg p.o. twice daily 13.Spironolactone 12.5 mg p.o. daily. 14.Eliquis 10 mg p.o. twice daily, 28 tablets, and then drop down to 5 mg p.o. twice daily. DISCHARGE DIET: Diabetic and heart healthy. DISCHARGE ACTIVITY: As tolerated. Take care to prevent falls. No strenuous activity. DISCHARGE INSTRUCTIONS: If your condition changes, contact your physician and/or return to the emergency department. Changes may include but are not limited to shortness of breath, increased fatigue, excessive bleeding, unexplained weight loss or gain, unimaginable pain, or signs or symptoms of infection. DISCHARGE PHYSICIAN FOLLOWUP: ASHIA Rojo, Ryder Ford MD, Spike Meza MD, Bassam Wilde MD. DISCHARGE DISPOSITION: Home. Dictated by ASHIA Madrigal for Ge Campbell MD cc: ASHIA Madrigal MD I have seen and examined Ms Pinto today. Physical exams unchanged and her vitals stable. She is currently asymptomatic. She is stable for discharge. I have reviewed and reconciled her home medications. i agree with the above discharge summary. MARGE
[2018-11-10] MEDS ORDERED: ELIQUIS PO SCH (09:00)
== END 2018-11-05 19:47 | disposition home health service (06) | DRG 313 ==
LOC: SUPCPDRO → ED 10:50 → 3N 14:22 → SUATTDRO 14:22
PROVIDERS: ADMIT Internal Medicine; ATTEND Internal Medicine
CPT/HCPCS: 71010; 71045; 71275; 80048; 80053; 82550; 82948; 83036; 83735; 83880; 84484; 84703; 85025; 85379; 85610; 93005; 93010; 93017; 93306; 93970; 94640; 94761; 99285; A9270; C8929; J1815; Q9957; Q9967; XXXXX